=== PATIENT | female | born 1985 | race African-American/Black ===

== ENCOUNTER 2024-03-06 17:48 | Emergency (ER) | payer OTHER ==
[2024-03-06 19:08] VITALS: BP 143/71; PULSE 71; RESP 20; TEMP 98.1; BMI 29.0
== END 2024-03-06 19:07 | disposition home or self-care (01) ==
LOC: FER 17:48
DX: S16.1XXA Strain of muscle, fascia and tendon at neck level, initial encounter (principal); S13.4XXA Sprain of ligaments of cervical spine, initial encounter; V47.5XXA Car driver injured in collision with fixed or stationary object in traffic accident, initial encounter; Y92.410 Unspecified street and highway as the place of occurrence of the external cause
CPT/HCPCS: 99283-25